=== PATIENT | male | born 2005 ===

== ENCOUNTER 2023-03-09 23:39 | Inpatient (IN) ==
[2023-03-10 00:22] LABS: ABS Lymphocytes 1.6 10^3/uL (1.0-4.8); ABS Monocytes 0.6 10^3/uL (0.0-1.1); ABS Neutrophils 6.5 10^3/uL (1.5-7.6); ABS Nucleated RBC 0.02 10^3/ul; Eosinophil % 0.1 %; Hematocrit 44.3 % (38-53); Hemoglobin 15.4 g/dL (13.2-16.3); Lymphocyte % 18.5 %; Mean Corpuscular Hemoglobin 31.2 pg (27-33); Mean Corpuscular Hgb Conc 34.7 g/dL (31-36); Mean Corpuscular Volume 89.7 fL (80-97); Mean Platelet Volume 6.8 fL (7.5-11.2); Nucleated Red Blood Cells % 0.2 /100 WBC (0.0-0.4); Platelet Count 272 10^3/uL (150-450); Red Blood Count 4.94 10^6/uL (4.06-5.63); Red Cell Distribution Width 12.4 % (12-17); White Blood Count 8.8 10^3/uL (3.6-10.2)
[2023-03-10 00:31] LABS: Urine Appearance Clear; Urine Bilirubin Negative (Negative); Urine Blood Negative (Negative); Urine Color Yellow; Urine Glucose Negative (Negative); Urine Ketones 2+ (Negative); Urine Nitrite Negative (Negative); Urine Protein Negative (Negative); Urine Specific Gravity 1.016 (1.002-1.030); Urine Urobilinogen Positive (Negative)
[2023-03-10 00:32] LABS: Albumin 4.7 g/dL (3.2-5.2); Anion Gap 12 mmol/L (2-16); CO2 Carbon Dioxide 23 mmol/L (22-32); Calcium 9.3 mg/dL (8.6-10.3); Chloride 98 mmol/L (101-111); Potassium 3.9 mmol/L (3.5-5.0); Sodium 133 mmol/L (135-145)
[2023-03-10 00:38] LABS: ALT 138 U/L (7-52); AST 158 U/L (13-39); Albumin/Globulin Ratio 1.5 (1-3); Alkaline Phosphatase 57 U/L (35-149); Blood Urea Nitrogen 10 mg/dL (6-24); Creatinine, Serum 0.91 mg/dL (0.67-1.17); Globulin 3.2 g/dL (2-4); Glucose 89 mg/dL (70-100); Total Protein 7.9 g/dL (6.4-8.9); eGFR CKD-EPI 124.5 (>60)
[2023-03-10 00:43] LABS: Urine Benzodiazepine Screen None Detected (None Detect); Urine Cannabinoids Screen None Detected (None Detect); Urine Opiates Screen None Detected (None Detect)
[2023-03-10 00:54] LABS: Acetaminophen < 15 mcg/mL; Alcohol, S < 13 mg/dL (<13); Salicylate < 2.50 mg/dL (<30)
[2023-03-10 01:57] LABS: TSH Ultra Thyroid Stim Horm 0.95 mcIU/mL (0.34-5.60)
[2023-03-10] MEDS ORDERED: Al Hydrox/Mg Hydrox/Simet LIQ 30 ML UDC PO PRN (02:12)
[2023-03-10] MEDS: Vitamin THERAPEUTIC TAB PO SCH (10:13)
[2023-03-11] MEDS: Vitamin THERAPEUTIC TAB PO SCH (07:52)
[2023-03-11 08:11] LABS: Albumin 4.4 g/dL (3.2-5.2); Albumin/Globulin Ratio 1.4 (1-3); Calcium 9.3 mg/dL (8.6-10.3); Creatinine, Serum 1.04 mg/dL (0.67-1.17); Globulin 3.1 g/dL (2-4); HDL Cholesterol 42.2 mg/dL; Potassium 4.3 mmol/L (3.5-5.0); Total Bilirubin 0.7 mg/dL (0.2-1.0); Total Protein 7.5 g/dL (6.4-8.9); eGFR CKD-EPI 106.1 (>60)
[2023-03-12] MEDS: Vitamin THERAPEUTIC TAB PO SCH (09:46)
[2023-03-13] MEDS: Vitamin THERAPEUTIC TAB PO SCH (08:05)
[2023-03-14] MEDS: Vitamin THERAPEUTIC TAB PO SCH (08:33)
[2023-03-15] MEDS: Vitamin THERAPEUTIC TAB PO SCH (07:58)
[2023-03-16] MEDS: Vitamin THERAPEUTIC TAB PO SCH (11:16)
[2023-03-17] MEDS: risperiDONE-M 1 mg Oradis TAB PO SCH ×3 (08:59→21:09)
[2023-03-17] MEDS: Vitamin THERAPEUTIC TAB PO SCH (10:18)
[2023-03-18] MEDS: risperiDONE-M 1 mg Oradis TAB PO SCH ×2 (07:34→21:48)
[2023-03-18] MEDS: Vitamin THERAPEUTIC TAB PO SCH (07:34)
[2023-03-19] MEDS: risperiDONE-M 1 mg Oradis TAB PO SCH ×2 (10:35→21:37)
[2023-03-19] MEDS: Vitamin THERAPEUTIC TAB PO SCH (10:35)
[2023-03-20] MEDS: risperiDONE-M 1 mg Oradis TAB PO SCH ×2 (08:22→21:23)
[2023-03-20] MEDS: Vitamin THERAPEUTIC TAB PO SCH (09:02)
[2023-03-21] MEDS: risperiDONE-M 1 mg Oradis TAB PO SCH ×2 (08:07→22:02)
[2023-03-21] MEDS: Vitamin THERAPEUTIC TAB PO SCH (08:07)
[2023-03-22] MEDS: risperiDONE-M 1 mg Oradis TAB PO SCH ×2 (09:18→20:10)
[2023-03-22] MEDS: Vitamin THERAPEUTIC TAB PO SCH (09:18)
[2023-03-23] MEDS: risperiDONE-M 1 mg Oradis TAB PO SCH ×2 (09:46→22:02)
[2023-03-23] MEDS: Vitamin THERAPEUTIC TAB PO SCH (09:46)
[2023-03-24] MEDS: Vitamin THERAPEUTIC TAB PO SCH (09:09)
[2023-03-24] MEDS: risperiDONE-M 1 mg Oradis TAB PO SCH ×2 (09:09→21:05)
[2023-03-25] MEDS: risperiDONE-M 1 mg Oradis TAB PO SCH ×2 (08:44→19:39)
[2023-03-25] MEDS: Vitamin THERAPEUTIC TAB PO SCH (08:45)
[2023-03-25] MEDS ORDERED: Paliperidone SUSTENNA 234 MG/1.5 ML IM ONE (12:08)
[2023-03-25] MEDS ORDERED: Haloperidol 5 mg/ml SDV IV/IM 5 MG/ML AMP ONE (14:07)
[2023-03-25] MEDS ORDERED: Haloperidol 5 mg/ml SDV IV/IM 5 MG/ML AMP IM ONE (14:22)
[2023-03-25] MEDS ORDERED: LORazepam 2 mg VIAL 1 ml IM ONE (14:24)
[2023-03-25] MEDS ORDERED: Lorazepam PYXIS KEY PRN (14:24)
[2023-03-25] MEDS ORDERED: LORazepam 2 mg VIAL 1 ml ONE (14:27)
[2023-03-26] MEDS: risperiDONE-M 1 mg Oradis TAB PO SCH ×3 (05:56→22:55)
[2023-03-26] MEDS: Vitamin THERAPEUTIC TAB PO SCH (10:21)
[2023-03-27] MEDS: risperiDONE-M 1 mg Oradis TAB PO SCH ×2 (09:37→22:18)
[2023-03-27] MEDS: Vitamin THERAPEUTIC TAB PO SCH ×2 (09:37→14:18)
[2023-03-28] MEDS: Vitamin THERAPEUTIC TAB PO SCH (09:03)
[2023-03-28] MEDS: risperiDONE-M 1 mg Oradis TAB PO SCH ×2 (09:03→20:06)
[2023-03-29] MEDS: risperiDONE-M 1 mg Oradis TAB PO SCH ×2 (08:34→20:19)
[2023-03-29] MEDS: Vitamin THERAPEUTIC TAB PO SCH (08:35)
[2023-03-30] MEDS: Vitamin THERAPEUTIC TAB PO SCH (09:25)
[2023-03-30] MEDS: risperiDONE-M 1 mg Oradis TAB PO SCH ×2 (09:26→20:50)
[2023-03-31] MEDS: risperiDONE-M 1 mg Oradis TAB PO SCH ×2 (08:17→20:31)
[2023-03-31] MEDS: Vitamin THERAPEUTIC TAB PO SCH (08:17)
[2023-03-31] MEDS: Cholecalciferol (VIT D3) 1,000 unit TAB PO SCH (18:11)
[2023-04-01] MEDS: Vitamin THERAPEUTIC TAB PO SCH (09:56)
[2023-04-01] MEDS: risperiDONE-M 1 mg Oradis TAB PO SCH ×3 (09:57→22:54)
[2023-04-01] MEDS: Cholecalciferol (VIT D3) 1,000 unit TAB PO SCH (09:58)
[2023-04-01] MEDS ORDERED: chlorproMAZINE 25 MG/ML 2 ML (50 MG) ONE (12:20)
[2023-04-01] MEDS ORDERED: Paliperidone SUSTENNA 234 MG/1.5 ML IM ONE (14:46)
[2023-04-02] MEDS: Cholecalciferol (VIT D3) 1,000 unit TAB PO SCH (09:13)
[2023-04-02] MEDS: risperiDONE-M 1 mg Oradis TAB PO SCH ×2 (09:13→20:24)
[2023-04-02] MEDS: Vitamin THERAPEUTIC TAB PO SCH (09:13)
[2023-04-03] MEDS: risperiDONE-M 1 mg Oradis TAB PO SCH ×2 (08:40→21:06)
[2023-04-03] MEDS: Vitamin THERAPEUTIC TAB PO SCH (08:40)
[2023-04-03] MEDS: Cholecalciferol (VIT D3) 1,000 unit TAB PO SCH (08:40)
[2023-04-04] MEDS: Vitamin THERAPEUTIC TAB PO SCH (08:17)
[2023-04-04] MEDS: Cholecalciferol (VIT D3) 1,000 unit TAB PO SCH (08:17)
[2023-04-04] MEDS: risperiDONE-M 1 mg Oradis TAB PO SCH ×2 (08:18→20:21)
[2023-04-04] MEDS ORDERED: Paliperidone SUSTENNA 156 MG/1 ML IM ONE (11:00)
[2023-04-05] MEDS: Cholecalciferol (VIT D3) 1,000 unit TAB PO SCH (08:39)
[2023-04-05] MEDS: Vitamin THERAPEUTIC TAB PO SCH (08:39)
[2023-04-05] MEDS: risperiDONE-M 1 mg Oradis TAB PO SCH (08:40)
[2023-04-05] MEDS: Oxymetazoline 0.05% NASAL SPR 15 ML BTL BOTH NARES SCH ×2 (11:07→20:43)
[2023-04-06] MEDS: Oxymetazoline 0.05% NASAL SPR 15 ML BTL BOTH NARES SCH ×3 (06:18→20:56)
[2023-04-06] MEDS: Vitamin THERAPEUTIC TAB PO SCH (09:39)
[2023-04-06] MEDS: Cholecalciferol (VIT D3) 1,000 unit TAB PO SCH (09:39)
[2023-04-07] MEDS: Cholecalciferol (VIT D3) 1,000 unit TAB PO SCH (08:12)
[2023-04-07] MEDS: Vitamin THERAPEUTIC TAB PO SCH (08:12)
[2023-04-07] MEDS: Oxymetazoline 0.05% NASAL SPR 15 ML BTL BOTH NARES SCH ×2 (08:12→20:59)
[2023-04-08] MEDS: Oxymetazoline 0.05% NASAL SPR 15 ML BTL BOTH NARES SCH (07:50)
[2023-04-08] MEDS: Vitamin THERAPEUTIC TAB PO SCH (07:50)
[2023-04-08] MEDS: Cholecalciferol (VIT D3) 1,000 unit TAB PO SCH (07:50)
[2023-04-09] MEDS: Cholecalciferol (VIT D3) 1,000 unit TAB PO SCH (08:03)
[2023-04-09] MEDS: Vitamin THERAPEUTIC TAB PO SCH (08:03)
[2023-04-10] MEDS: Cholecalciferol (VIT D3) 1,000 unit TAB PO SCH (10:04)
[2023-04-10] MEDS: Vitamin THERAPEUTIC TAB PO SCH (10:04)
[2023-04-11] MEDS: Vitamin THERAPEUTIC TAB PO SCH (09:33)
[2023-04-11] MEDS: Cholecalciferol (VIT D3) 1,000 unit TAB PO SCH (09:33)
[2023-04-11] MEDS ORDERED: OLANZapine 5 mg TAB *ODT PO SCH ×2 (18:00→21:00)
[2023-04-12] MEDS: Vitamin THERAPEUTIC TAB PO SCH (09:07)
[2023-04-12] MEDS: Cholecalciferol (VIT D3) 1,000 unit TAB ONE ×2 (09:08→12:35)
[2023-04-12] MEDS: Cholecalciferol (VIT D3) 1,000 unit TAB PO SCH (09:20)
[2023-04-12] MEDS: OLANZapine 10 mg TAB*ODT PO SCH (20:24)
[2023-04-13] MEDS: Cholecalciferol (VIT D3) 1,000 unit TAB PO SCH (08:34)
[2023-04-13] MEDS: Vitamin THERAPEUTIC TAB PO SCH (08:34)
[2023-04-13] MEDS: OLANZapine 10 mg TAB*ODT PO SCH (20:32)
[2023-04-14] MEDS: Cholecalciferol (VIT D3) 1,000 unit TAB PO SCH (08:54)
[2023-04-14] MEDS: Vitamin THERAPEUTIC TAB PO SCH (08:54)
[2023-04-14] MEDS: OLANZapine 5 mg TAB *ODT PO SCH (20:25)
[2023-04-14] MEDS: OLANZapine 10 mg TAB*ODT PO SCH (20:25)
[2023-04-15] MEDS: Vitamin THERAPEUTIC TAB PO SCH (08:55)
[2023-04-15] MEDS: Cholecalciferol (VIT D3) 1,000 unit TAB PO SCH (08:55)
[2023-04-15] MEDS: OLANZapine 10 mg TAB*ODT PO SCH (21:12)
[2023-04-15] MEDS: OLANZapine 5 mg TAB *ODT PO SCH (21:12)
[2023-04-16] MEDS: Vitamin THERAPEUTIC TAB PO SCH (09:32)
[2023-04-16] MEDS: Cholecalciferol (VIT D3) 1,000 unit TAB PO SCH (09:32)
[2023-04-16 09:52] VITALS: BP 147/85
[2023-04-16] MEDS: OLANZapine 5 mg TAB *ODT PO SCH (21:21)
[2023-04-16] MEDS: OLANZapine 10 mg TAB*ODT PO SCH (21:21)
[2023-04-17] MEDS: Vitamin THERAPEUTIC TAB PO SCH (10:24)
[2023-04-17] MEDS: Cholecalciferol (VIT D3) 1,000 unit TAB PO SCH (10:24)
[2023-04-17] MEDS: OLANZapine 10 mg TAB*ODT PO SCH (19:44)
[2023-04-17] MEDS: OLANZapine 5 mg TAB *ODT PO SCH (19:45)
[2023-04-18] MEDS: Vitamin THERAPEUTIC TAB PO SCH (11:06)
[2023-04-18] MEDS ORDERED: Vitamin THERAPEUTIC TAB ONE (11:08)
[2023-04-18] MEDS: Cholecalciferol (VIT D3) 1,000 unit TAB PO SCH (11:09)
== END 2023-04-18 11:51 | disposition home or self-care (01) | DRG 750 ==
LOC: ED 23:39 → EDHOLD 03-10 01:58 → BSU 03-10 02:16
PROVIDERS: ADMIT Psychiatry & Neurology Psychiatry; ATTEND Psychiatry & Neurology Psychiatry